=== PATIENT | female | born 2000 | race Hispanic/Latino ===

== ENCOUNTER 2024-06-17 09:33 | Emergency (ER) | payer SELFPAY ==
[2024-06-17] VITALS (17 sets, daily range): BP systolic 96–116; BP diastolic 60–83
[~2024-06-17] VITALS: Ht 157.5 cm; Wt 62.0 kg
[2024-06-17] MEDS ORDERED: LIDOcaine HCl 1% (Local Anesth.) 20 ML VIAL IJ ONE (10:20)
[2024-06-17] MEDS ORDERED: POVIDONE IODINE 0.5 OZ/BTL TOP ONE (10:20)
== END 2024-06-17 11:07 | disposition home or self-care (01) | DRG 607 ==
LOC: ED 09:33
PROC: 0HDRXZZ Extraction of Toe Nail, External Approach (ICD-10-PCS; principal; 2024-06-17)
DX: L60.0 Ingrowing nail (principal)